=== PATIENT | female | born 1990 | race Hispanic/Latino ===

== ENCOUNTER 2024-02-18 16:42 | Emergency (ER) | payer OTHER ==
[2024-02-18] MEDS ORDERED: Cyclobenzaprine 10 MG TAB ONE (17:24)
[2024-02-18] MEDS ORDERED: Naproxen 500 MG TAB ONE (17:25)
== END 2024-02-18 18:32 | disposition home or self-care (01) ==
LOC: CSHERS 16:42
DX: M25.511 Pain in right shoulder (principal)
CPT/HCPCS: 99283